=== PATIENT | male | born 2000 | race African-American/Black ===

== ENCOUNTER 2021-11-25 11:04 | Emergency (ER) | payer MEDICAID, SELFPAY ==
--- NOTE | 2021-11-25 11:41 | ED.GENADULT ---
HPI - General Adult General Stated complaint: Cold symptoms Time Seen by Provider: 11/25/21 11:37 Source: patient Limitations: no limitations History of Present Illness HPI narrative: Patient presenting with 3-4 day history of cold symptoms. Patient had COVID-19 the past approximately 1 year prior and states he has never returned taste or smell. Patient takes no prescribed medications at this time. Patient has positive sick contacts from kids at home. Patient complaining congestion headache question fever at home denies chills. Symptoms are [id number]. No other complaints at this time. Related Data Allergies Allergy/AdvReac Type Severity Reaction Status Date / Time No Known Allergies Allergy Verified 11/25/21 11:38 Review of Systems Constitutional: Constitutional: Reports body ache(s), Denies chills, Reports fever(s) and Reports headache(s) ENT: Reports headache(s), Reports nasal congestion and Reports sore throat Cardiovascular: Cardiovascular: Denies chest pain and Denies dyspnea Respiratory: Respiratory: Reports cough and Denies dyspnea Gastrointestinal: Gastrointestinal: Denies diarrhea, Denies nausea and Denies vomiting Musculoskeletal: Musculoskeletal: Reports no additional musculoskeletal complaints Neurologic: Reports headache(s) [facility] Past Medical History Attestation statement: The following information was validated with the patient. Social History Social History Advance Directives: No Advance Directives Information Provided: No Physical Exam ED Vital Signs: vital signs have been reviewed as normal and appeared to be correct. Blood pressure normal. Heart rate normal. Respiration rate normal. Temperature normal. Oxygen saturation normal. Appearance: Alert. Oriented X3. No acute distress. Head: Normal external exam. Normocephalic. Atraumatic. Eyes: PERRLA. EOMI. Conjunctiva and sclera normal. Eyelids normal. ENT: Pharynx normal. Uvula midline. Moist mucous membranes. No trismus noted. No evidence of peritonsillar abscess no erythema Neck: Soft full range of motion, no nuchal rigidity CVS: Heart regular rate and rhythm no murmurs and rubs Respiratory: Breath sounds are clear to auscultation bilaterally. No accessory muscle use noted. Back: Full range of motion noted. Skin: Skin warm and dry. Normal skin color. Normal skin turgor. No rashes/lesions/lacerations noted. Extremities: No lower extremity edema. Extremities exhibit normal range of motion. Extremities nontender. Neuro: Oriented X 3. No motor deficit. No sensory deficit. Reflexes normal. Course Course Course Narrative: COVID-19 Influenza URI Viral syndrome Sinusitis 11:44 COVID-19 swab influenza swab pending. 12:07 COVID-19 test is negative. 12:18 Vital signs are stable patient is negative for COVID-19 and influenza a and B. symptoms likely secondary to a viral URI. Medical Decision Making Lab Data Labs: Lab Results 11/25/21 11/25/21 Range/Units 11:42 11:42 COVID-19 (PARAMJIT) Negative (Negative) COVID-19 Clin Com See Note Influenza Type A (DAVID) Negative (Negative) Influenza Type B (DAVID) Negative (Negative) Influenza A & B Note See Note Discharge Plan Discharge Clinical Impression: Upper respiratory infection Patient Disposition: Home, Self-Care Instructions: Upper Respiratory Infection (ED) Additional Instructions: Your swabs were negative for influenza and COVID-19 Symptoms likely secondary to viral syndrome Increase fluids rest Tylenol Motrin for fever at home. Stand Alone Forms: Work/School Release
[2021-11-25 12:05] LABS: COVID-19 Test Negative (Negative); IDNOW Serial# 16C4AD1C
[2021-11-25 12:16] LABS: Influenza A Negative (Negative); Influenza B2 Negative (Negative)
[2021-11-25 12:28] VITALS: BP 122/69; PULSE 78; RESP 16; TEMP 36.3; O2SAT 97; BMI 20.2
== END 2021-11-25 12:35 | disposition home or self-care (01) ==
PROVIDERS: Physician Assistant; Emergency Provider Emergency Medicine
DX: J06.9 Acute upper respiratory infection, unspecified (principal); Z20.822 Contact with and (suspected) exposure to COVID-19; R51.9 Headache, unspecified
CPT/HCPCS: 87502; 87635; 99283